=== PATIENT | female | born 1995 | race Caucasian/White ===

== ENCOUNTER 2020-01-06 09:41 | Emergency (ER) | payer OTHER, SELFPAY ==
[2020-01-06 09:41] VITALS: BP 157/94; PULSE 103; RESP 15; TEMP 36.9; O2SAT 99; BMI 30.9
--- NOTE | 2020-01-06 09:50 | PC.NURSE ---
Pt having swelling and pain on the exterior of ear anterior and posterior of ear
--- NOTE | 2020-01-06 10:01 | ED.GENADULT ---
HPI - General Adult General Chief complaint: Ear Stated complaint: Right ear is swollen Time Seen by Provider: 01/06/20 09:55 Source: patient Mode of arrival: Ambulatory Limitations: no limitations History of Present Illness HPI narrative: 24-year-old female here for evaluation of right ear pain. Patient states that approximately 36 hours ago she started noticing pain around her right ear. She noticed yesterday that the outside of her right ear and both in front and behind the ear were swollen. She thought this morning things were potential little worse. She has had no problems with hearing. Has only tried anti-inflammatories for the symptoms. She stated that she did not know what to do so she came to the emergency department. Related Data Previous Rx's Medication Instructions Recorded ciprofloxacin HCl 500 mg PO BID 7 Days #14 tab 01/06/20 Allergies Allergy/AdvReac Type Severity Reaction Status Date / Time No Known Drug Allergies Allergy Verified 01/06/20 09:47 Review of Systems Constitutional Constitutional: Denies fever(s) and Denies headache(s) ENT Ears, Nose, Mouth, and Throat: Denies change in voice, Denies vertigo, Denies dizziness, Denies headache(s), Denies neck pain, Denies sore throat and Denies throat swelling Comments: Right ear pain and swelling Cardiovascular Cardiovascular: Denies chest pain and Denies dyspnea Respiratory Respiratory: Denies dyspnea Gastrointestinal Gastrointestinal: Denies abdominal pain and Denies vomiting Musculoskeletal Musculoskeletal: Denies neck pain Integumentary/Breasts Skin/Breast: Denies rash Comments: Swelling around the right ear Neurologic Neurologic: Denies behavioral changes, Denies vertigo, Denies dizziness and Denies headache(s) Psychiatric Psychiatric: Denies behavioral changes Hematologic/Lymphatic Hematologic/Lymphatic: Denies easy bleeding and Denies easy bruising Allergic/Immunologic Allergic/Immunologic: Denies throat swelling Patient History Medical History Healthy adult (Acute) Social History Smoking Status: Unknown if ever smoked Smoking Status: Unknown if ever smoked alcohol intake frequency: holidays/special occasions only Substance Use Type: does not use Exam Initial Vital Signs Initial Vital Signs: Vital Signs Temperature 98.5 F 01/06/20 09:41 Pulse Rate 103 H 01/06/20 09:41 Respiratory Rate 15 01/06/20 09:41 Blood Pressure 157/94 H 01/06/20 09:41 Pulse Oximetry 99 01/06/20 09:41 Const General: cooperative, healthy appearing, comfortable and well developed Limitations: mental status not altered HENIA Head: normal to inspection and normocephalic Ears: TM normal on the left, mastoids normal bilaterally and EAC abnormal erythema on the right and edema on the right Nose: external nose normal Mouth: oral mucosae normal Throat: posterior oropharynx normal Eyes General: appearance normal, both eyes and all related structures Neck Lymphatic: No lymphadenopathy Resp Effort & Inspection: normal respiratory effort Skin Other: Mild redness behind the right ear and also in the pre-auricular space Neuro General: alert and awake Course Vital Signs Vital signs: Vital Signs - 8 hr 01/06/20 09:41 Temperature 98.5 F Pulse Rate 103 H Respiratory Rate 15 Blood Pressure 157/94 H Pulse Oximetry 99 Medical Decision Making MDM Narrative Medical decision making narrative: Patient does have swelling of the EAC of the right ear. The tympanic membrane on the side is unremarkable. Also has some tenderness pre-auricular the which I believe are lymph nodes. Has some redness behind the right ear. No tenderness over the mastoid. I suspect this is early otitis externa. The right ear canal is open. Given the redness behind the ear there is also some concern about a cellulitis so I feel that putting her on oral antibiotics rather than ear drops would be warranted in this case. There were electronically transmitted to the pharmacy of her choice. She was given return precautions and follow-up instructions. She expressed understanding and agreement. Discharge Plan Departure Patient Disposition: Home Clinical Impression: Otitis externa Qualifiers: Otitis externa type: unspecified type Chronicity: acute Laterality: right Qualified Code(s): H60.501 - Unspecified acute noninfective otitis externa, right ear Instructions: DI for Otitis Externa Activity Restrictions/Additional Instructions: No restrictions on activities. An antibiotic was electronically transmitted to [facility]. Take it as directed. Contact your primary provider for follow-up. Return to the emergency department for any new or worsening symptoms Prescriptions: New ciprofloxacin HCl 500 mg tablet 500 mg PO BID 7 Days Qty: 14 RF: 0
== END 2020-01-06 10:27 | disposition home or self-care (01) ==
PROVIDERS: Emergency Provider Emergency Medicine
DX: H60.501 Unspecified acute noninfective otitis externa, right ear (principal)
CPT/HCPCS: 99281

== ENCOUNTER → 2022-10-25 09:20 | Outpatient (CLI) | payer OTHER, SELFPAY ==
--- NOTE | 2022-10-25 | DI.NM.S_ITS ---
PROCEDURE: NM HIDA WITH CCK PHARMACEUTICAL: 5.4 mCi Tc-99m mebrofenin IV; 2.0 mcg CCK IV. INDICATIONS: Right upper quadrant pain TECHNIQUE: Following intravenous administration of Tc-99m mebrofenin, sequential anterior abdominal images were obtained. To evaluate the contractile response of the gallbladder in response to Cholecystokinin (CCK), sincalide (0.02 ?g/kg) was administered by slow intravenous infusion approximately 60 minutes after the administration of the radiopharmaceutical. Sequential imaging was continued for 30 minutes after the start of CCK infusion. Gallbladder ejection fraction was calculated. COMPARISON: None. FINDINGS: Biliary scan: There is normal tracer uptake and excretion by the liver. There is normal visualization of the intrahepatic ducts, common bile duct, and gallbladder. There is normal tracer transit into the duodenum. CCK stimulation: There is absence of contractile response of the gallbladder to CCK infusion. The calculated gallbladder ejection fraction is 0%; normal values are above 35%. It has been shown that any patient abdominal pain after CCK administration is related to the rate of CCK injection, rather than to any underlying gallbladder disease (Clinical Nuclear Medicine 2012; 37: 63-70. Journal of Nuclear Medicine 2014; 55: 1-9). IMPRESSION: 1. Normal filling of gallbladder. No evidence for acute cholecystitis. 2. Absence of contractile response of gallbladder to CCK stimulation consistent with gallbladder dyskinesia. Dictated by: Jesse Garcia M.D. on 10/25/2022 at 12:03 Approved by: Jesse Garcia M.D. on 10/25/2022 at 12:04
== END ==
PROVIDERS: PCP Physician Assistant Medical; Referring Provider Physician Assistant Medical; Visit Provider Physician Assistant Medical
DX: R10.11 Right upper quadrant pain (principal)
CPT/HCPCS: 78227; A9537; J2805